=== PATIENT | female | born 2000 | race Caucasian/White ===

== ENCOUNTER 2023-09-16 09:34 | Emergency (ER) | payer SELFPAY ==
[2023-09-16 09:42] VITALS: BP 134/74; PULSE 90; RESP 20; TEMP 36.2; O2SAT 98
--- NOTE | 2023-09-16 10:06 | ED.GENADULT ---
HPI - General Adult General Chief complaint: Upper Respiratory Infection Stated complaint: Sore Throat Source: patient Mode of arrival: ambulatory Limitations: no limitations History of Present Illness HPI narrative: Patient presents for evaluation of sick symptoms for the past four days. Symptoms include sinus congestion, sore throat, nausea and headache. No chills, vomiting, diarrhea, cough or SOB. Several individuals with whom she has had close contact recently have strep. She tried NSAIDs for her symptoms. She does vape but denies cigarette use. Related Data Allergies Allergy/AdvReac Type Severity Reaction Status Date / Time No Known Allergies Allergy Verified 09/16/23 09:48 Review of Systems Review of Systems: CONSTITUTIONAL: Denies fever, chills, or sweats. EYES: Denies visual changes, redness, or discharge. ENT: Reports sinus congestion, rhinorrhea and sore throat CARDIOVASCULAR: Denies chest pain, palpitations, or edema. RESPIRATORY: Denies cough or dyspnea. GASTROINTESTINAL: Reports nausea. Denies abdominal pain, vomiting, or diarrhea. GENITOURINARY: Denies dysuria or hematuria. SKIN: Denies rash or itching. MUSCULOSKELETAL: Denies back pain, joint pain, or myalgia. NEUROLOGIC: Reports headache. Denies numbness, dizziness, or weakness. PSYCHIATRIC: Denies anxiety or depression. [facility] Past Medical History Medical History No pertinent past medical history Surgical History Surgical History No pertinent past surgical history Family History Family History Mother Family history non-contributory Social History Social History Tobacco type: e-cigarettes/vaping Additional living arrangements comments: Lives with boyfriend Occupation/Education: student Gender identity (if verbalized by the patient): Female Sexual Orientation (if Verbalized by the Patient): Straight or Heterosexual Spiritual care concerns: No Exam Narrative: GENERAL: Well-appearing, well-nourished, and in no acute distress. HEAD: Normocephalic, atraumatic. EYES: PERRLA and EOMI. ENT: Nares clear, no rhinorrhea or epistaxis. Mucous membranes moist. Bilateral tonsillar enlargement and erythema with white exudate. Uvula is midline. Bilateral TMs pearly michael nonbulging NECK: Supple. No adenopathy or masses. No carotid bruits or JVD CHEST: Clear to auscultation. No respiratory distress. No wheezes rales or rhonchi HEART: Regular rate and rhythm. No murmur heard. Normal peripheral pulses. ABDOMEN: Soft, nontender, nondistended, normal active bowel sounds. EXTREMITIES: Normal range of motion. No edema. SKIN: Warm, dry, no rash. NEURO: No focal deficits. Alert and oriented x3. PSYCH: Normal mood and affect. Course Course Emergency Course: This is a 23-year-old female who presented for evaluation of sick symptoms after recent strep exposures. Strep here was negative. Influenza negative. Will treat with amoxicillin based upon recent exposures. Increase hydration. OTC agents for symptom management. Follow up with primary provider. Go to the ER for worsening symptoms. Pt in agreement with plan of care. Level of Care: Express Care Visit Vital Signs Vital signs: Vital Signs Temperature 36.2 C L 09/16/23 09:42 Pulse Rate 90 09/16/23 09:42 Respiratory Rate 20 09/16/23 09:42 Blood Pressure 134/74 09/16/23 09:42 Pulse Oximetry 98 09/16/23 09:42 Oxygen Delivery Room Air 09/16/23 09:42 Temperature 36.2 C L 09/16/23 09:42 Pulse Rate 90 09/16/23 09:42 Respiratory Rate 20 09/16/23 09:42 Blood Pressure 134/74 09/16/23 09:42 Pulse Oximetry 98 09/16/23 09:42 Oxygen Delivery Room Air 09/16/23 09:42 Medical Decision Making Vital Signs
== END 2023-09-16 10:10 | disposition home or self-care (01) ==
PROVIDERS: Emergency Provider Nurse Practitioner
DX: J02.9 Acute pharyngitis, unspecified (principal); F17.290 Nicotine dependence, other tobacco product, uncomplicated
CPT/HCPCS: 87081; 87804; 87880; 99213; G0463